=== PATIENT | male | born 1990 | race Caucasian/White ===

== ENCOUNTER 2018-04-05 21:04 | Emergency (ER) | payer SELFPAY ==
[2018-04-05] MEDS ORDERED: IBUPROFEN 600 MG TAB PO ONE (21:48)
[2018-04-05] MEDS ORDERED: OXYCODONE/APAP 5/325MG PREPACK#4 BTL TAKEHOME ONE (22:31)
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
[2018-04-05 23:31] VITALS: BP 133/79
== END 2018-04-05 23:32 | disposition home or self-care (01) ==
PROC: 2W38X1Z Immobilization of Right Upper Extremity using Splint (ICD-10-PCS; principal; 2018-04-05)
DX: S52.121A Displaced fracture of head of right radius, initial encounter for closed fracture (principal); K08.89 Other specified disorders of teeth and supporting structures; V18.0XXA Pedal cycle driver injured in noncollision transport accident in nontraffic accident, initial encounter; Y92.9 Unspecified place or not applicable; F17.200 Nicotine dependence, unspecified, uncomplicated; Z59.0 Homelessness
CPT/HCPCS: A4565